=== PATIENT | female | born 1965 | race Caucasian/White ===

== ENCOUNTER 2020-02-08 13:06 | Outpatient (CLI) | payer MEDICARE, MEDICAID, SELFPAY ==
--- NOTE | ~2020-02-08 | CT_ITS ---
EXAMINATION: CT abdomen pelvis wo con EXAM DATE: 02/08/2020 13:57 INDICATION: Hematuria. TECHNIQUE: Spiral CT of the abdomen and pelvis was performed without contrast. Axial, coronal and sag ittal images were reviewed. The dose-length product (DLP) for this examination was 803.92 mGy-cm. T he exposure was tailored according to patient size (auto mA exposure control), and iterative reconstr uction (ASIR) was used as additional dose reduction technique. Comparison is made to prior examinatio n from 10/28/2011. FINDINGS: There is no nephrolithiasis or hydronephrosis. The uterus is not identified and has likel y been surgically resected. The bladder is unremarkable. There is 3.6 cm left adrenal gland lesion with macroscopic fat, and angiomyelolipoma. Liver, right adrenal glands, pancreas are unremarkable. T here is mild splenomegaly, spleen measuring 15 cm. There are cholecystectomy clips. There is no retr operitoneal or pelvic lymphadenopathy. There is mild scattered arteriosclerotic disease. The appendix is normal. The stomach and small bowel are unremarkable. There is expected amount of c olonic stool. No free intraperitoneal gas. The heart is normal in size. There are no pericardial or pleural effusions. The lung bases are unremarkable. There are no osteoblastic or osteolytic les ions identified. IMPRESSION: 1. No nephrolithiasis, hydronephrosis or acute intra-abdominal findings. 2. Left adrenal angiomyelolipoma. 3. Mild splenomegaly. Reviewed, dictated and finalized at location B.
[2020-02-08 16:00] LABS: Hematocrit 49.5 % (37.0-47.0); Hemoglobin 16.2 g/dL (12.0-15.0); Immature Platelet Fraction Pct 5.4 % (0.9-11.2); Mean Corpuscular HGB Conc 32.7 g/dl (32-36); Mean Corpuscular Hemoglobin 29.3 pg (26-34); Mean Corpuscular Volume 89.5 fl (80-100); Platelet Count Result 113 k/mm3 (150-375); Red Blood Count 5.53 M/mm3 (4.2-5.4); Red Cell Distribution Width 12.9 % (11.5-14.5); White Blood Count 9.8 K/mm3 (4.5-10.0)
[2020-02-08 16:03] LABS: Add Urine Microscopic? YES; Appearance Urine Cloudy (Clear); Bilirubin Urine Negative (Negative); Blood Urine 3+ (Negative); Color Urine Yellow (Yellow); Glucose Urine UA 3+ mg/dL (Negative); Ketones Urine Negative (Negative); Leukocyte Esterase Ur 2+ LEU/UL (Negative); Mucus Urine Rare /lpf; Nitrate Urine Negative (Negative); Protein Urine 2+ mg/dL (Negative); RBC Urine 51-75 /hpf (0-2); Squamous Epithelial Cell Urine Occasional /hpf (Few); Urobilinogen Urine Negative mg/dL (<2.0); WBC Urine >75 /hpf
[2020-02-08 16:11] LABS: Alanine Aminotransferase 57 U/L (4-35); Albumin Level 4.3 g/dL (3.5-5.1); Alkaline Phosphatase 193 U/L (38-126); Anion Gap 5 mmol/L (8-16); Aspartate Amino Transferase 66 U/L (14-36); Bilirubin,Total 0.7 mg/dL (0.2-1.3); Blood Urea Nitrogen 15 mg/dL (7-17); Calcium 9.5 mg/dL (8.4-10.2); Carbon Dioxide 32 mmol/L (22-30); Chloride 106 mmol/L (98-107); Cholesterol 152 mg/dL (0-200); Creatine Kinase 37 U/L (30-135); Estimated Glomerular Filt Rate > 60; Glucose 131 mg/dL (65-105); HDL Direct 42 mg/dL; Potassium 4.3 mmol/L (3.4-5.0); Sodium 143 mmol/L (137-145); Triglycerides 163 mg/dL (<150); Uric Acid 2.8 mg/dL (2.5-7.5)
[2020-02-08 16:18] LABS: LDL Cholesterol Direct 85 mg/dL
[2020-02-08 16:28] LABS: Specific Grav Ur 1.037 (1.001-1.035)
[2020-02-08 16:56] LABS: Hemoglobin A1C 6.7 % (<5.7)
[2020-02-08 17:02] LABS: Band Neutrophils Percent 4 % (0-6); Eosinophils Absolute Manual 0.09 K/mm3 (0.02-0.5); Eosinophils Percent Manual 1 % (0-4); Lymphocytes Absolute Manual 2.84 K/mm3 (1.1-4.5); Monocytes Absolute Manual 0.09 K/mm3 (0.1-0.90); Monocytes Percent Manual 1 % (3-9); Neutrophils Absolute Manual 6.76 K/mm3 (1.7-7.2); Neutrophils Percent Manual 65 % (46-73); Platelet Estimate Decreased (Adequate); Total Cells Counted 100
[2020-02-08 17:04] LABS: Atypical Lymphocytes Present
[2020-02-08 17:14] LABS: Folic Acid > 20.0 ng/mL (2.76->20)
[2020-02-09 09:27] LABS: Creatinine Urine 94.5 mg/dL
[2020-02-09 09:51] LABS: Microalbumin Urine Random 270.3 mg/L (0-16.7)
== END 2020-02-08 13:07 | disposition home or self-care (01) ==
PROVIDERS: PCP Nurse Practitioner Family; Visit Provider Nurse Practitioner Family
DX: R31.9 Hematuria, unspecified (principal); D69.6 Thrombocytopenia, unspecified; K75.4 Autoimmune hepatitis; M32.9 Systemic lupus erythematosus, unspecified; F33.0 Major depressive disorder, recurrent, mild; E11.42 Type 2 diabetes mellitus with diabetic polyneuropathy; Z79.4 Long term (current) use of insulin; E78.2 Mixed hyperlipidemia; M1A.9XX0 Chronic gout, unspecified, without tophus (tophi); I10 Essential (primary) hypertension; M79.7 Fibromyalgia; N39.0 Urinary tract infection, site not specified; R16.1 Splenomegaly, not elsewhere classified
CPT/HCPCS: 36415; 74176; 80053; 80061; 81001; 82043; 82550; 82607; 82746; 83036; 84550; 85025; 85055; 87077; 87086; 87088; 87186